=== PATIENT | female | born 1985 | race Caucasian/White ===

== ENCOUNTER 2017-04-06 13:32 | Inpatient (IN) ==
[2017-04-06 13:59] LABS: Bilirubin,Urine Negative (Negative); Blood,Urine Negative (Negative); Clarity,Urine Cloudy (Clear); Color,Urine Yellow (Yellow); Glucose,Urine (UA) Normal (Normal); Ketones,Urine Negative (Negative); Leukocyte Esterase,Urine Negative (Negative); Nitrite,Urine Negative (Negative); PH,Urine 6.5 pH Units (5.0-8.0); Protein,Urine Negative (Neg-Trace); Specific Gravity,Urine 1.023 (1.010-1.025); Urobilinogen,Urine Normal (Normal)
[2017-04-06 14:02] LABS: Bacteria,Urine Few per hpf (None-Few); Hyaline Casts,Urine None Seen per lpf (None-Few); Squamous Epithelial Cell,Urine Many per lpf (None-Few)
[2017-04-06 14:04] LABS: Amphetamine Screen,Urine Negative ng/mL (Cutoff=1000); Barbiturate Screen,Urine Negative ng/mL (Cutoff=200); Benzodiazepines Screen,Urine Negative ng/mL (Cutoff=200); Cannabinoid Screen,Urine Negative ng/mL (Cutoff = 50); Cocaine Screen,Urine Negative ng/mL (Cutoff= 300); Opiate Screen,Urine Negative ng/mL (Cutoff=300); Phencyclidine Screen,Urine Negative ng/mL (Cutoff=25)
[2017-04-06 14:20] LABS: Basophils % 0.2 %; Eosinophils # 0.1 K/mcL (0.0-0.6); Eosinophils % 0.7 %; Hematocrit 40.3 % (35.3-44.9); Hemoglobin 13.5 g/dL (11.5-15.4); Immature Granulocytes % 0.5 % (0-4); Lymphocytes # 3.2 K/mcL (0.6-4.6); Lymphocytes % 18.9 %; Mean Corpuscular HGB Conc 33.5 g/dL (31.6-35.5); Mean Corpuscular Hemoglobin 30.8 pg (28.0-33.3); Mean Corpuscular Volume 91.8 fL (83.0-100.0); Monocytes # 0.7 K/mcL (0.0-1.3); Monocytes % 3.9 %; Neutrophils # 12.6 K/mcL (1.6-8.9); Platelet Count 300 K/mcL (140-400); Red Blood Count 4.39 M/mcL (3.82-4.97); Red Cell Distribution Width 12.1 % (11.5-14.5); Segmented Neutrophils % 75.8 %
[2017-04-06 14:35] LABS: Acetaminophen < 1.0 mcg/mL (10-30); Ethanol < 10 mg/dL (0-10); Salicylate < 5.0 mg/dL (15.0-30.0)
[2017-04-06 14:37] LABS: BUN/Creatinine Ratio 15 (6-26); Blood Urea Nitrogen 11 mg/dL (6-20); Calcium 9.5 mg/dL (8.6-10.3); Carbon Dioxide 29 mEq/L (23-29); Chloride 104 mEq/L (98-107); Glucose 89 mg/dL (70-105); Osmolality,Calculated 281 (280-300); Potassium 3.8 mEq/L (3.5-5.1); Sodium 136 mEq/L (136-145); eGFR For African Americans > 60 (> 60); eGFR For Non-African Americans > 60 (> 60)
--- NOTE | 2017-04-06 15:11 | Emergency Department Note ---
Disposition Clinical Impression: Suicidal ideation Disposition: Admitted As Inpatient Condition: Good Referrals: NONE,PCP [Primary Care Provider] - Forms: ED Satisfaction Letter Psych HPI - General Chief Complaint: ED Psychiatric Symptoms Stated Complaint: SI Time Seen by Provider: 04/06/17 14:19 Source: patient Mode of arrival: private vehicle Limitations: no limitations Nursing Notes Reviewed: Yes Vital Signs Reviewed: Yes - History of Present Illness HPI Narrative: 31-year-old female history of anxiety, depression, PTSD who presents to the ER with a chief complaint of suicidal ideation. Patient reports she has a prior history of trying to injure herself when she was a child. She states over the last few weeks she has had thoughts of hurting herself. She states that she would take pills. Denies any auditory or visual hallucinations. No homicidal ideation. States she does have anxiety and depression and is medicated for this. Reports compliance with her medications. She does drink alcohol most recently a few days ago. No drug use. No other complaints. Pt complaint: suicidal ideation Onset (ago): week(s) Duration: constant History of similar episodes: Yes Improves with: none Worsens with: none Alleged intoxication: No Associated Psychiatric Symptoms: depression, suicidal ideation Associated symptoms: Reports: denies other symptoms Traumatic symptoms: denies traumatic injury Self harm or harm to others: admits thoughts of self harm, has plan - Related Data Home Medications Medication Instructions Recorded Confirmed Duloxetine HCl [Cymbalta] 60 mg PO DAILY 08/19/16 08/19/16 LORazepam [Ativan] 1 mg PO BID PRN 08/19/16 08/19/16 Abilify 10/15/16 Vistaril 10/15/16 Previous Rx's Medication Instructions Recorded Amoxicillin 875 mg PO BID #20 tablet 11/29/16 Benzonatate [Tessalon] 200 mg PO TID PRN #30 capsule 11/29/16 Pseudoephedrine [Sudafed] 30 - 60 mg PO Q4-6H PRN #30 tablet 11/29/16 Allergies Allergy/AdvReac Type Severity Reaction Status Date / Time No Known Allergies Allergy Verified 04/06/17 13:38 All systems ED: reviewed and negative except as stated. Psychiatric: Reports: anxiety, depression, suicidal thoughts. Denies: homicidal thoughts, auditory hallucinations, visual hallucinations Past Medical History - Past Medical History Attestation: Yes The following information was validated with the patient. Source: patient Medical history: Reports: no medical history Surgical history: Reports: , other Psychiatric history: Reports: anxiety, bipolar, depression CREATIVE SERVICES COORDINATOR history: Reports: non-contributory - Social History Smoking Status: Current every day smoker Smokeless Tobacco Status: No Alcohol use: Reports: occasionally Drug use: Reports: none Physical Exam - General Limitations: no limitations General appearance: alert, in no apparent distress - Head Head exam: atraumatic, normocephalic - Eye Eye exam: Present: normal appearance - ENT ENT exam: normal exam - Neck Neck exam: Present: normal inspection - Chest Chest inspection: Present: normal inspection, symmetric chest wall rise - Respiratory Respiratory exam: Present: normal lung sounds bilaterally - Cardiovascular Cardiovascular exam: Present: regular rate, normal rhythm, normal heart sounds - Abdominal Exam Abdominal exam: Present: soft, Non-Tender. Absent: tenderness - Extremities Exam Extremities exam: Present: normal inspection, full ROM - Expanded Upper Extremity Exam Shoulder exam: Present: normal inspection, full ROM Arm exam: Present: normal inspection, full ROM Elbow exam: Present: normal inspection, full ROM Forearm/Wrist exam: Present: normal inspection, full ROM Hand exam: Present: normal inspection, full ROM - Expanded Lower Extremity Exam Hip/Pelvis exam: Present: normal inspection, full ROM Upper leg exam: Present: normal inspection, full ROM Knee exam: Present: normal inspection, full ROM Lower leg exam: Present: normal inspection, full ROM Ankle exam: Present: normal inspection, full ROM Foot/toe exam: Present: normal inspection, full ROM - Psychiatric Psychiatric exam: Present: depressed, flat affect Course Course Narrative: Patient seen and examined. [place] slip for suicidal ideation. We will get labs for medical clearance for psychiatric evaluation. - Reevaluation(s) Reevaluation #1: Patient medically cleared. Waiting for psychiatric evaluation. Vital Signs Temperature 98.5 F 04/06/17 13:35 Pulse Rate 92 04/06/17 13:35 Respiratory Rate 16 04/06/17 13:35 Blood Pressure 111/77 04/06/17 13:35 O2 Sat by Pulse Oximetry 100 04/06/17 13:35 Temperature 98.5 F 04/06/17 13:35 Pulse Rate 63 04/06/17 17:43 Respiratory Rate 16 04/06/17 17:43 Blood Pressure 110/82 04/06/17 17:43 O2 Sat by Pulse Oximetry 100 04/06/17 17:43 Oxygen Delivery Oxygen Delivery Room Air Psych - MDM Narrative Medical decision making narrative: 31-year-old female presents to the ER due to suicidal ideation. She is medically cleared. Awaiting for psychiatric evaluation and recommendations. Patient is accepted to psychiatric service for inpatient management.. - Lab Data Lab results reviewed: Yes I reviewed the patient's lab results. Result diagrams: 04/06/17 14:03 04/06/17 14:03 Lab Results 04/06/17 04/06/17 04/06/17 Range/Units 13:45 13:45 14:03 WBC 16.7 H (4.3-11.1) K/mcL RBC 4.39 (3.82-4.97) M/mcL Hgb 13.5 (11.5-15.4) g/dL Hct 40.3 (35.3-44.9) % MCV 91.8 (83.0-100.0) fL MCH 30.8 (28.0-33.3) pg MCHC 33.5 (31.6-35.5) g/dL RDW 12.1 (11.5-14.5) % Plt Count 300 (140-400) K/mcL MPV 9.0 L (9.4-12.4) fL Immature Gran % 0.5 (0-4) % Seg Neutrophils % 75.8 % Lymphocytes % 18.9 % Monocytes % 3.9 % Eosinophils % 0.7 % Basophils % 0.2 % Neutrophils # 12.6 H (1.6-8.9) K/mcL Lymphocytes # 3.2 (0.6-4.6) K/mcL Monocytes # 0.7 (0.0-1.3) K/mcL Eosinophils # 0.1 (0.0-0.6) K/mcL Basophils # 0.0 (0.0-0.2) K/mcL Sodium (136-145) mEq/L Potassium (3.5-5.1) mEq/L Chloride (98-107) mEq/L Carbon Dioxide (23-29) mEq/L BUN (6-20) mg/dL Creatinine (0.60-1.20) mg/dL Est GFR ( Amer) (> 60) Est GFR (Non-Af Amer) (> 60) BUN/Creatinine Ratio (6-26) Glucose (70-105) mg/dL Calculated Osmolality (280-300) Calcium (8.6-10.3) mg/dL Urine Color Yellow (Yellow) Urine Clarity Cloudy A (Clear) Urine pH 6.5 (5.0-8.0) pH Units Ur Specific [place] 1.023 (1.010-1.025) Urine Protein Negative (Neg-Trace) mg/dL Urine Glucose (UA) Normal (Normal) mg/dL Urine Ketones Negative (Negative) mg/dL Urine Blood Negative (Negative) Urine Nitrite Negative (Negative) Urine Bilirubin Negative (Negative) Urine Urobilinogen Normal (Normal) mg/dL Ur Leukocyte Esterase Negative (Negative) Urine Microscopic RBC 3-5 H (0-3) per hpf Urine Microscopic WBC 3-5 H (0-3) per hpf Ur Squamous Epith Cells Many H (None-Few) per lpf Urine Bacteria Few (None-Few) per hpf Hyaline Casts None Seen (None-Few) per lpf Ur Culture Indicated? NO (NO) Salicylates (15.0-30.0) mg/dL Urine Opiates Screen Negative (Cguciu=342) ng/mL Acetaminophen (10-30) mcg/mL Ur Barbiturates Screen Negative (Ziebqh=550) ng/mL Ur Phencyclidine Scrn Negative (Cutoff=25) ng/mL Ur Amphetamines Screen Negative (Awoapz=5124) ng/mL U Benzodiazepines Scrn Negative (Kgnwpg=858) ng/mL Urine Cocaine Screen Negative (Cutoff= 300) ng/mL U Marijuana (THC) Screen Negative (Cutoff = 50) ng/mL Ethyl Alcohol (0-10) mg/dL 04/06/17 Range/Units 14:03 WBC (4.3-11.1) K/mcL RBC (3.82-4.97) M/mcL Hgb (11.5-15.4) g/dL Hct (35.3-44.9) % MCV (83.0-100.0) fL MCH (28.0-33.3) pg MCHC (31.6-35.5) g/dL RDW (11.5-14.5) % Plt Count (140-400) K/mcL MPV (9.4-12.4) fL Immature Gran % (0-4) % Seg Neutrophils % % Lymphocytes % % Monocytes % % Eosinophils % % Basophils % % Neutrophils # (1.6-8.9) K/mcL Lymphocytes # (0.6-4.6) K/mcL Monocytes # (0.0-1.3) K/mcL Eosinophils # (0.0-0.6) K/mcL Basophils # (0.0-0.2) K/mcL Sodium 136 (136-145) mEq/L Potassium 3.8 (3.5-5.1) mEq/L Chloride 104 (98-107) mEq/L Carbon Dioxide 29 (23-29) mEq/L BUN 11 (6-20) mg/dL Creatinine 0.75 (0.60-1.20) mg/dL Est GFR ( Amer) > 60 (> 60) Est GFR (Non-Af Amer) > 60 (> 60) BUN/Creatinine Ratio 15 (6-26) Glucose 89 (70-105) mg/dL Calculated Osmolality 281 (280-300) Calcium 9.5 (8.6-10.3) mg/dL Urine Color (Yellow) Urine Clarity (Clear) Urine pH (5.0-8.0) pH Units Ur Specific [place] (1.010-1.025) Urine Protein (Neg-Trace) mg/dL Urine Glucose (UA) (Normal) mg/dL Urine Ketones (Negative) mg/dL Urine Blood (Negative) Urine Nitrite (Negative) Urine Bilirubin (Negative) Urine Urobilinogen (Normal) mg/dL Ur Leukocyte Esterase (Negative) Urine Microscopic RBC (0-3) per hpf Urine Microscopic WBC (0-3) per hpf Ur Squamous Epith Cells (None-Few) per lpf Urine Bacteria (None-Few) per hpf Hyaline Casts (None-Few) per lpf Ur Culture Indicated? (NO) Salicylates < 5.0 L (15.0-30.0) mg/dL Urine Opiates Screen (Yqnxph=993) ng/mL Acetaminophen < 1.0 L (10-30) mcg/mL Ur Barbiturates Screen (Ouzzhr=411) ng/mL Ur Phencyclidine Scrn (Cutoff=25) ng/mL Ur Amphetamines Screen (Pkhyik=8848) ng/mL U Benzodiazepines Scrn (Zvrrlm=529) ng/mL Urine Cocaine Screen (Cutoff= 300) ng/mL U Marijuana (THC) Screen (Cutoff = 50) ng/mL Ethyl Alcohol < 10 (0-10) mg/dL Psychiatric Medical Clearance - Medical Clearance Checklist Medical History: Uterus, adenomyosis (Resolved) Suicidal ideation (Acute) Acute back pain (Inactive) Bilateral otitis media (Inactive) Dental abscess (Inactive) Depression (Inactive) Lumbar strain (Inactive) Maxillary sinusitis, acute (Inactive) Ovarian cyst (Inactive) TMJ (sprain of temporomandibular joint) (Inactive) UTI (urinary tract infection) (Inactive) Upper respiratory infection (Inactive) Urinary tract infection (Inactive) Urinary tract infection (Inactive) Vaginal discharge (Inactive) No Social History Section defined Current Vitals: Last Vital Signs Temp 98.5 F 04/06/17 13:35 Pulse 63 04/06/17 17:43 Resp 16 04/06/17 17:43 BP 110/82 04/06/17 17:43 Pulse Ox 100 04/06/17 17:43 Psychiatric Lab Panel: Drug Levels and Toxicity 04/06/17 04/06/17 13:45 14:03 Urine Opiates Screen Negative Acetaminophen < 1.0 L Ur Barbiturates Screen Negative Ur Phencyclidine Scrn Negative Ur Amphetamines Screen Negative U Benzodiazepines Scrn Negative Urine Cocaine Screen Negative U Marijuana (THC) Screen Negative Ethyl Alcohol < 10 Abnormal Labs: Abnormal lab results WBC 16.7 K/mcL (4.3-11.1) H 04/06/17 14:03 MPV 9.0 fL (9.4-12.4) L 04/06/17 14:03 Neutrophils # 12.6 K/mcL (1.6-8.9) H 04/06/17 14:03 Urine Clarity Cloudy (Clear) A 04/06/17 13:45 Urine Microscopic RBC 3-5 per hpf (0-3) H 04/06/17 13:45 Urine Microscopic WBC 3-5 per hpf (0-3) H 04/06/17 13:45 Ur Squamous Epith Cells Many per lpf (None-Few) H 04/06/17 13:45 Salicylates < 5.0 mg/dL (15.0-30.0) L 04/06/17 14:03 Acetaminophen < 1.0 mcg/mL (10-30) L 04/06/17 14:03 Statement of Medical Clearance: I have evaluated the patient, reviewed diagnostic information, and certify that the patient's medical condition is sufficiently stable that transfer to the psychiatric unit does not pose a significant risk of deterioration. Attestation Statement - Attestation Attestation: I examined this patient and my medical decision-making was reviewed with the Resident Physician, Dr. Romano. I agree with the documented findings, disposition and treatment plan as described except to the extent set forth below. Patient is a 31-year-old white female with a history of anxiety and depression treated as an outpatient who presents to the emergency department today with suicidal ideation with plan. Patient states that she would take pills to try to harm herself but has not taken anything prior to arrival here today. Patient denies any recent stressors or inciting incidents. Patient has no homicidal ideation no hallucinations or delusions and no physical complaints. I agree patient's physical exam findings as documented, vital signs are stable. Patient's lab evaluation including drug screen and serum alcohol are ordered and within normal limits. We are awaiting psychiatric evaluation. [place] slip was signed and placed on the patient's chart. Patient will be admitted to [facility] they feel patient would benefit from inpatient hospital management.
[2017-04-06] MEDS ORDERED: Ibuprofen 400 MG TABLET PO PRN (19:16)
[2017-04-06] MEDS ORDERED: *HR* LORazepam 1 MG TABLET PO PRN (19:16)
[2017-04-06] MEDS ORDERED: hydrOXYzine pamoate 25 MG CAPSULE PO PRN (19:16)
[2017-04-06] MEDS ORDERED: MOM Conc 10 ML UD.LIQ PO PRN (19:16)
[2017-04-06] MEDS ORDERED: Haloperidol Lactate 5 MG/ML VIAL IM PRN (19:16)
[2017-04-06] MEDS ORDERED: Mag Hydrox/Al Hydrox/Simeth 30 ML UDC PO PRN (19:16)
[2017-04-06] MEDS ORDERED: *HR* LORazepam 2 MG/ML VIAL IM PRN (19:16)
[2017-04-06] MEDS: Nicotine 21 MG PATCH.TD24 TD SCH (21:28)
[2017-04-07] MEDS: Nicotine 21 MG PATCH.TD24 TD SCH (08:38)
--- NOTE | 2017-04-07 14:34 | Psychiatry History & Physical ---
Date of Encounter: 04/07/17 Time of Encounter: 14:15 History of Present Illness Patient Stated Chief Complaint: "I was having suicidal thoughts." Medicare Admission Attestation: For traditional Medicare patients the provided hospital inpatient services are reasonable and necessary and in the case of services not specified as inpatient -only under 42 CFR 419.22 (n), that they are appropriately provided as inpatient services in accordance 42 CFR 412.3. For Critical Access Hospital the patient may reasonably be expected to be discharged or transferred to a hospital within 96 hours after admission to the Critical Access Hospital. Admitted From: Emergency Dept Plans for Post Hospital Care: Home History of Present Illness: Ms. Amezcua is a 31 year old female who was advised by her therapist to come to the hospital to be admitted to the psychiatric unit. Patient states that she was having suicidal thoughts of going out into the arenas and cutting on herself to bleed to . She explains to me the current situation that she has had an extreme amount of stress. She is being evicted from her home with her children. She has no place to go. She has till the last of the month to do this. She states that she feels hopeless and helpless. She has depressive ruminations and anxiety. She describes herself as having no energy to effectively get moved. She finds her self isolating, spending most of day laying on the couch. Then when she gets nothing done, her anxiety gets worse. She knows that she has some support from her family. She was talking to her therapist and explained how overwhelmed she felt. Her therapist is a good support for her. She denies any auditory or visual hallucinations. She states that even with the little bit of time that she spent on the unit, going to groups and speaking with the rec therapist, the social service technician, that she is already feeling more hopeful. She states that she took some Seroquel last night and slept really well. She denies any active suicidal thoughts at this time, but does not feel like she is stable enough for discharge. She is going to use the rest of her time here to write down a [id number] plan as to what she needs to do to get packed and ready to go, to keep her anxiety and depression in check. Past Med Surg Social Fam HX - Past Medical History Medical history: no medical history - Past Psychiatric History Psychiatric history: Reports: bipolar, previous psychiatric hospitalization Past psychiatric history details: Counseling at [facility] Family psychiatric history: Yes (Mom: Bipolar Dad: Depression) Family History of Suicide: Attempted (Father) - Past Surgical History Surgical History: , other - Social History Smoking Status: Current every day smoker Smokeless Tobacco Status: No Alcohol use: occasionally Drug use: none Occupational status: unemployed Current living situation: Home - Independent (Being evicted) Activity Level: Independent ambulation Recent Out of Country Travel Within the Last 8 Weeks: No Exposure or Possible Exposure to Illness During Travel: No - Family History Father Hx Family Cardiac Disorders: Yes ([place]) Medications & Allergies Duloxetine HCl [Cymbalta] 60 mg PO BID 08/19/16 [History] ARIPiprazole [Abilify] 2 mg PO HS 10/15/16 [History] ARIPiprazole [Abilify] 2 mg PO HS tablet 04/08/17 [Rx] DULoxetine [Cymbalta] 120 mg PO DAILY capsule. 04/08/17 [Rx] 3 Allergy/AdvReac Type Severity Reaction Status Date / Time No Known Allergies Allergy Verified 04/06/17 13:38 Mental Status Exam Patient orientation: Yes Person, Yes Time, Yes Place, Yes Circumstance Level of alertness: Alert Patient appearance: Appropriate, Well Groomed, Well-nourished Behavior: anxious (mildly) Psychomotor activity: Normal Eye contact: Maintains Eye Contact Mood description: Anxious Affect description: congruent with mood Speech pattern: Normal rate, Normal rhythm, Normal tone, Appropriate Speech volume: Normal Thought process: Intact Thought content: Yes Suicidal ideation (dissipating) Attention span: Capable of Focused Attention, Capable of Sustained Attention Memory description: Grossly Intact Patient reliability: Reliable Historian Intelligence estimate: Average Judgment: Fair Insight: Partial Exam - HEENT Head exam IM: Present: atraumatic Results - Vital Signs Vital signs: Temp Pulse Resp BP Pulse Ox 97.8 F 96 16 107/72 100 04/07/17 09:00 04/07/17 09:00 04/07/17 09:00 04/07/17 09:00 04/06/17 17:43 - Labs Labs: Laboratory Last Values WBC 16.7 K/mcL (4.3-11.1) H 04/06/17 14:03 RBC 4.39 M/mcL (3.82-4.97) 04/06/17 14:03 Hgb 13.5 g/dL (11.5-15.4) 04/06/17 14:03 Hct 40.3 % (35.3-44.9) 04/06/17 14:03 MCV 91.8 fL (83.0-100.0) 04/06/17 14:03 MCH 30.8 pg (28.0-33.3) 04/06/17 14:03 MCHC 33.5 g/dL (31.6-35.5) 04/06/17 14:03 RDW 12.1 % (11.5-14.5) 04/06/17 14:03 Plt Count 300 K/mcL (140-400) 04/06/17 14:03 MPV 9.0 fL (9.4-12.4) L 04/06/17 14:03 Immature Gran % 0.5 % (0-4) 04/06/17 14:03 Seg Neutrophils % 75.8 % 04/06/17 14:03 Lymphocytes % 18.9 % 04/06/17 14:03 Monocytes % 3.9 % 04/06/17 14:03 Eosinophils % 0.7 % 04/06/17 14:03 Basophils % 0.2 % 04/06/17 14:03 Neutrophils # 12.6 K/mcL (1.6-8.9) H 04/06/17 14:03 Lymphocytes # 3.2 K/mcL (0.6-4.6) 04/06/17 14:03 Monocytes # 0.7 K/mcL (0.0-1.3) 04/06/17 14:03 Eosinophils # 0.1 K/mcL (0.0-0.6) 04/06/17 14:03 Basophils # 0.0 K/mcL (0.0-0.2) 04/06/17 14:03 Sodium 136 mEq/L (136-145) 04/06/17 14:03 Potassium 3.8 mEq/L (3.5-5.1) 04/06/17 14:03 Chloride 104 mEq/L (98-107) 04/06/17 14:03 Carbon Dioxide 29 mEq/L (23-29) 04/06/17 14:03 BUN 11 mg/dL (6-20) 04/06/17 14:03 Creatinine 0.75 mg/dL (0.60-1.20) 04/06/17 14:03 Est GFR ( Amer) > 60 (> 60) 04/06/17 14:03 Est GFR (Non-Af Amer) > 60 (> 60) 04/06/17 14:03 BUN/Creatinine Ratio 15 (6-26) 04/06/17 14:03 Glucose 89 mg/dL (70-105) 04/06/17 14:03 Calculated Osmolality 281 (280-300) 04/06/17 14:03 Calcium 9.5 mg/dL (8.6-10.3) 04/06/17 14:03 Urine Color Yellow (Yellow) 04/06/17 13:45 Urine Clarity Cloudy (Clear) A 04/06/17 13:45 Urine pH 6.5 pH Units (5.0-8.0) 04/06/17 13:45 Ur Specific [place] 1.023 (1.010-1.025) 04/06/17 13:45 Urine Protein Negative mg/dL (Neg-Trace) 04/06/17 13:45 Urine Glucose (UA) Normal mg/dL (Normal) 04/06/17 13:45 Urine Ketones Negative mg/dL (Negative) 04/06/17 13:45 Urine Blood Negative (Negative) 04/06/17 13:45 Urine Nitrite Negative (Negative) 04/06/17 13:45 Urine Bilirubin Negative (Negative) 04/06/17 13:45 Urine Urobilinogen Normal mg/dL (Normal) 04/06/17 13:45 Ur Leukocyte Esterase Negative (Negative) 04/06/17 13:45 Urine Microscopic RBC 3-5 per hpf (0-3) H 04/06/17 13:45 Urine Microscopic WBC 3-5 per hpf (0-3) H 04/06/17 13:45 Ur Squamous Epith Cells Many per lpf (None-Few) H 04/06/17 13:45 Urine Bacteria Few per hpf (None-Few) 04/06/17 13:45 Hyaline Casts None Seen per lpf (None-Few) 04/06/17 13:45 Ur Culture Indicated? NO (NO) 04/06/17 13:45 Salicylates < 5.0 mg/dL (15.0-30.0) L 04/06/17 14:03 Urine Opiates Screen Negative ng/mL (Rwjeyf=587) 04/06/17 13:45 Acetaminophen < 1.0 mcg/mL (10-30) L 04/06/17 14:03 Ur Barbiturates Screen Negative ng/mL (Uahjuj=706) 04/06/17 13:45 Ur Phencyclidine Scrn Negative ng/mL (Cutoff=25) 04/06/17 13:45 Ur Amphetamines Screen Negative ng/mL (Mymntf=4753) 04/06/17 13:45 U Benzodiazepines Scrn Negative ng/mL (Odxgwg=966) 04/06/17 13:45 Urine Cocaine Screen Negative ng/mL (Cutoff= 300) 04/06/17 13:45 U Marijuana (THC) Screen Negative ng/mL (Cutoff = 50) 04/06/17 13:45 Ethyl Alcohol < 10 mg/dL (0-10) 04/06/17 14:03 Assessment and Plan (1) Bipolar disorder, most recent episode depressed Current visit: Yes Status: Acute Plan: Admit inpatient for safety and stabilization, Close observation, Suicide Precautions per unit protocol, Encourage participation in unit milieu, Group Therapy, Monitor sleep Risks, benefits, side effects, alternatives discussed w /pt: Yes (No med changes at this time. Cont home meds) Patient agreeable to treatment: Yes Plans for Post Hospital Care: Home Estimated Length of Stay ( Days): 3
[2017-04-07] MEDS ORDERED: ARIPiprazole 2 MG TABLET PO SCH (21:00)
[2017-04-08] MEDS: Nicotine 21 MG PATCH.TD24 TD SCH (08:53)
[2017-04-08 09:12] VITALS: BP 109/74
--- NOTE | 2017-04-08 12:49 | Psychiatry Progress Note ---
Date of Encounter: 04/08/17 Time of Encounter: 12:40 Results - Vital Signs Vital Signs: Temp Pulse Resp BP Pulse Ox 97.8 F 107 18 109/74 100 04/08/17 09:00 04/08/17 09:00 04/08/17 09:00 04/08/17 09:00 04/06/17 17:43 Assessment and Plan (1) Bipolar disorder, most recent episode depressed Current visit: Yes Status: Acute Consult Discharge Plan - Plan Referrals: [facility] [Outside] - 04/10/17 10:40 am (The above appointment is with Dr. Corey for outpatient psychiatric assessment and medication management services. You will also see Ida Gresham for mental health counseling services on 05/03/2017 at 2:00 PM. Above appointments reflect first availability. You may contact the office regularly to check for cancellations that may allow you to be seen sooner.) [facility] [Outside] (The assistant case manager assigned to you will contact you directly to schedule your intake appointment for case management and housing assistance services. )
--- NOTE | 2017-04-08 12:52 | Discharge Summary ---
Date of Encounter: 04/08/17 Time of Encounter: 12:40 Diagnosis - Discharge Diagnosis (1) Bipolar disorder, most recent episode depressed Status: Acute Medications - Discharge Medications Duloxetine HCl [Cymbalta] 60 mg PO BID 08/19/16 [History] ARIPiprazole [Abilify] 2 mg PO HS 10/15/16 [History] ARIPiprazole [Abilify] 2 mg PO HS tablet 04/08/17 [Rx] DULoxetine [Cymbalta] 120 mg PO DAILY capsule. 04/08/17 [Rx] 3 Allergy/AdvReac Type Severity Reaction Status Date / Time No Known Allergies Allergy Verified 04/06/17 13:38 Provider Date of admission: 04/06/17 19:05 Primary care physician: PCP NONE Assessment and Plan - Patient/Caregiver Discharge Instructions Activity: resume usual activities as tolerated Diet: regular diet - Follow up Plan Follow up with: [facility] [Outside] - 04/10/17 10:40 am (The above appointment is with Dr. Corey for outpatient psychiatric assessment and medication management services. You will also see Ida Gresham for mental health counseling services on 05/03/2017 at 2:00 PM. Above appointments reflect first availability. You may contact the office regularly to check for cancellations that may allow you to be seen sooner.) [facility] [Outside] (The case coordinator assigned to you will contact you directly to schedule your intake appointment for case management and housing assistance services. ) Functional capacity at discharge: independent ambulation Overall status at discharge: Stable Disposition: Home, Self-Care Hospital Course Hospital course: Ms. Amezcua is a 31 year old female who was admitted for having suicidal ideation. Patient tells me that she slept well again last night; went to bed at midnight and then slept in this morning. "I am feeling good". She told me that she wrote out a list and a plan for when she gets out. She describes it as a [id number] coping plan to slowly get things packed up to be able to move. Planning it out and doing it slowly will allow her to not get overwhelmed again, therefore not feel suicidal again. She states that having the time away allowed her to clear her head and get stabilized again. It was helpful to talk to people to improve her coping skills and figure out what to do. She states that she does not believe she will get overwhelmed again. She is thinking positive towards the future and things will work out. She denies any suicidal/homicidal ideation. She denies any auditory or visual hallucinations. Her mood is stable and she is future oriented. She will talk to her outpatient psychiatrist about switching to Seroquel which help relax her versus taking the Abilify. Patient is requesting discharge and is stable for discharge. Time spent discussing smoking cessation with patient: 3 to 10 minutes Does patient wish to continue nicotine replacement upon disc: No - Time Spent with Patient Total time spent providing and/or coordinating discharge services: 15 min Less than 30 minutes Quality - Multiple Antipsychotics Patient discharged on 2 or more antipsychotic medications: No Procedures - Procedures Procedures: Medication Management, Crisis Stabilization, Supportive Therapy, Group Therapy, Psychoeducational Therapy Mental Status Exam - Mental Status Exam Patient orientation: Yes Person, Yes Time, Yes Place, Yes Circumstance Level of alertness: Alert Patient appearance: Appropriate, Well Groomed, Well-nourished Behavior: calm Psychomotor activity: Normal Eye contact: Maintains Eye Contact Mood description: Euthymic/stable Affect description: congruent with mood Speech pattern: Normal rate, Normal rhythm, Normal tone, Appropriate Speech Volume: Normal Thought process: Intact, Logical, Linear, Goal Oriented Thought Content: Yes Intact Judgment: Good Insight: Full
== END 2017-04-08 14:50 | disposition home or self-care (01) | DRG 753 ==
LOC: EMEROO 13:32 → 1ANU 19:05
PROVIDERS: ADMIT Psychiatry & Neurology Psychiatry; ATTEND Psychiatry & Neurology Psychiatry